=== PATIENT | female | born 1990 | race African-American/Black ===

== ENCOUNTER 2022-11-06 13:08 | Emergency (ER) | payer BC, SELFPAY ==
[2022-11-06 13:15] VITALS: BP 130/98; PULSE 83; RESP 16; TEMP 36.4; O2SAT 99
[2022-11-06 13:22] VITALS: BP 130/98; PULSE 83; RESP 16; TEMP 36.4; O2SAT 99
--- NOTE | 2022-11-06 14:03 | ED.DENTAL ---
HPI - Dental/Oral General Chief complaint: Dental/Oral Stated complaint: Swollen face Source: patient Mode of arrival: ambulatory Limitations: no limitations History of Present Illness HPI Narrative: Patient presents for evaluation of right-sided facial swelling and dental pain. She indicates she has had right upper dental pain for about a week. She rates her pain ?20? on the scale of 1-10. No descriptive quality of the pain. No fever, chills, nausea, vomiting. This morning she woke from sleep with right-sided facial swelling. She states she has several medication allergies and other antibiotics such as Bactrim which have flared her chronic pancreatitis. She has chronic abdominal pain associated with her pancreatitis. Her pain is not worse than her baseline at the present time. She states she cannot take OTC agent for pain. She states no chance of . Related Data Home Medications Medication Instructions Recorded Confirmed olanzapine 15 mg tablet 15 mg PO DIRECTED 11/06/22 11/06/22 olanzapine 5 mg tablet 5 mg PO DIRECTED 11/06/22 11/06/22 Allergies Allergy/AdvReac Type Severity Reaction Status Date / Time cefuroxime Allergy Mild Swelling Verified 11/06/22 13:21 ciprofloxacin Allergy Unknown Swelling Verified 11/06/22 13:21 acetaminophen [From Tylenol] Allergy Itching Verified 11/06/22 13:21 cephalexin [From Keflex] Allergy Itching Verified 11/06/22 13:21 ibuprofen AdvReac Other Verified 11/06/22 13:21 Chocolate Allergy Mild Rash Uncoded 12/14/19 11:21 DARK SODA Allergy Mild Rash Uncoded 12/14/19 11:21 Review of Systems Review of Systems: CONSTITUTIONAL: Denies fever, chills, or sweats. EYES: Denies visual changes, redness, or discharge. ENT: Reports right upper dental pain and right sided facial swelling CARDIOVASCULAR: Denies chest pain, palpitations, or edema. RESPIRATORY: Denies cough or dyspnea. GASTROINTESTINAL: Denies abdominal pain, nausea, vomiting, or diarrhea. GENITOURINARY: Denies dysuria or hematuria. SKIN: Denies rash or itching. MUSCULOSKELETAL: Denies back pain, joint pain, or myalgia. NEUROLOGIC: Denies headache, numbness, dizziness, or weakness. PSYCHIATRIC: Denies anxiety or depression. [facility] Past Medical History Medical History Chronic pancreatitis Surgical History Surgical History (Reviewed 11/06/22 @ 14:06 by Harjit Paniagua [facility], ) No pertinent past surgical history Family History Family History (Reviewed 11/06/22 @ 14:06 by Harjit Paniagua [facility], ) Mother Family history non-contributory Social History Social History (Reviewed 11/06/22 @ 14:06 by Harjit Paniagua [facility], ) Substance use: never Gender identity (if verbalized by the patient): Female Spiritual care concerns: No Exam Narrative: GENERAL: Well-appearing, well-nourished, and in no acute distress. HEAD: Normocephalic, atraumatic. EYES: PERRLA and EOMI. ENT: Nares clear, no rhinorrhea or epistaxis. Right sided maxillary facial swelling. I do not appreciate any fluctuance in the gumline however she is tender in gumline adjacent to tooth #17. Mucous membranes moist. Oropharynx without tonsillar hypertrophy exudate or other lesions. Bilateral TMs pearly irwin nonbulging NECK: Supple. No adenopathy or masses. No carotid bruits or JVD CHEST: Clear to auscultation. No respiratory distress. No wheezes rales or rhonchi HEART: Regular rate and rhythm. No murmur heard. Normal peripheral pulses. ABDOMEN: Soft, nontender, nondistended, normal active bowel sounds. EXTREMITIES: Normal range of motion. No edema. SKIN: Warm, dry, no rash. NEURO: No focal deficits. Alert and oriented x3. PSYCH: Normal mood and affect. Course Course Emergency Course: This is a 32 old female who presented for evaluation of dental pain and right-sided facial swelling. I do not appreciate a drainable fluid collection. She has several allergies but
== END 2022-11-06 14:06 | disposition home or self-care (01) ==
PROVIDERS: Emergency Provider Nurse Practitioner
DX: K08.89 Other specified disorders of teeth and supporting structures (principal); R22.0 Localized swelling, mass and lump, head
CPT/HCPCS: 99213; G0463

== ENCOUNTER 2023-09-01 17:18 | Emergency (ER) | payer BC, SELFPAY ==
--- NOTE | 2023-09-01 17:26 | ED.URI ---
HPI - URI/Sore Throat General Chief Complaint: Upper Respiratory Infection Stated Complaint: congestion/cough/headache Source: patient and RN notes reviewed History of Present Illness HPI Narrative: 33-year-old female presents to urgent care with the sister at side. Patient states she has been congested and coughing for 1 week. Patient states her congestion is getting worse. Patient reports chills and sweating at home. Denies any vomiting, diarrhea, abdominal pain, sore throat, chest pain, or shortness of breath. Patient has been taking [id number] cold and flu medication without relief. Related Data Home Medications Medication Instructions Recorded Confirmed amlodipine 5 mg tablet 5 mg PO HS 09/01/23 09/01/23 olanzapine 20 mg tablet 20 mg PO HS 09/01/23 09/01/23 Allergies Allergy/AdvReac Type Severity Reaction Status Date / Time cefuroxime Allergy Mild Swelling Verified 09/01/23 17:41 ciprofloxacin Allergy Unknown Swelling Verified 09/01/23 17:41 acetaminophen [From Tylenol] Allergy Itching Verified 09/01/23 17:41 cephalexin [From Keflex] Allergy Itching Verified 09/01/23 17:41 ibuprofen AdvReac Other Verified 09/01/23 17:41 Chocolate Allergy Mild Rash Uncoded 09/01/23 17:41 DARK SODA Allergy Mild Rash Uncoded 09/01/23 17:41 Review of Systems Review of Systems: Pertinent positives and pertinent negatives per HPI. [facility] Past Medical History Medical History (Updated 09/01/23 @ 18:03 by Estela Shen APRN) Chronic pancreatitis Surgical History Surgical History No pertinent past surgical history Family History Family History Mother Family history non-contributory Social History Social History Substance use: never Gender identity (if verbalized by the patient): Female Spiritual care concerns: No Comments At the time of my signature, I reviewed and agree with the nursing past medical, surgical, social, and family history. There is no relevant family history pertinent to the patient complaint. Exam Narrative: GENERAL: This is a well-nourished, well-developed patient, in no apparent distress. HEAD: normocephalic, atraumatic. EYES: Sclera clear/white. Vision is grossly intact. EARS: External ears normal, auditory canals clear and without drainage, TMs normal without perforation. Hearing grossly intact. NOSE: External nose normal with no obvious nasal discharge, nares without redness, no rhinorrhea. Positive for congestion THROAT: Mucous membranes moist, posterior pharynx clear. NECK: Neck supple, non-tender without lymphadenopathy, masses or thyromegaly. CARDIOVASCULAR: Regular rate and rhythm without murmurs, gallops, or rubs. RESPIRATORY: Clear to auscultation. Breath sounds equal bilaterally. No wheezes, rales, or rhonchi. GASTROINTESTINAL: Abdomen soft, non-tender, nondistended. Bowel sounds are active. No hepato-splenomegaly, or palpable masses. No guarding. SKIN: warm, intact with no suspicious lesions or rash, good texture and turgor. NEURO: awake, alert, and oriented to person, place and time. There were no obvious focal neurologic abnormalities. Course Course Level of Care: Express Care Visit Vital Signs Vital signs: Vital Signs Temperature 98.9 F 09/01/23 17:32 Pulse Rate 82 09/01/23 17:32 Respiratory Rate 18 09/01/23 17:32 Blood Pressure 154/95 H 09/01/23 17:32 Pulse Oximetry 99 09/01/23 17:32 Oxygen Delivery Room Air 09/01/23 17:32 Temperature 98.9 F 09/01/23 17:32 Pulse Rate 82 09/01/23 17:32 Respiratory Rate 18 09/01/23 17:32 Blood Pressure 154/95 H 09/01/23 17:32 Pulse Oximetry 99 09/01/23 17:32 Oxygen Delivery Room Air 09/01/23 17:32 Reviewed MDM - URI/Sore Throat MDM Narrative Medical decision making narrative: Go to the ER for a
[2023-09-01 17:32] VITALS: BP 154/95; PULSE 82; RESP 18; TEMP 37.2; O2SAT 99
== END 2023-09-01 18:09 | disposition home or self-care (01) ==
PROVIDERS: Emergency Provider Nurse Practitioner Family
DX: J32.9 Chronic sinusitis, unspecified (principal)
CPT/HCPCS: 87804; 99213; G0463